=== PATIENT | male | born 1955 | race African-American/Black ===

== ENCOUNTER 2020-03-28 09:22 | Day surgery (SDC) | payer OTHER ==
[~2020-03-28 09:22] MED LIST: SODIUM CHLORIDE 0.9% 1000 ML 1,000 ML IV SCH
[2020-03-28] MEDS ORDERED: LIDOCAINE MPF (2%) 20 MG/1 ML VIAL 5 ML ONE (10:00)
--- NOTE | 2020-03-28 10:55 | Anesthesia Consultation ---
Anesthesia Consult and Med Hx Date of service: 03/28/20 - Airway Anesthetic Teeth Evaluation: Good ROM Head & Neck: Adequate Mental/Hyoid Distance: Adequate Mallampati Class: Class III Intubation Access Assessment: Possibly Difficult - Pulmonary Exam CTA: Yes - Cardiac Exam Cardiac Exam: RRR - Pre-Operative Health Status ASA Pre-Surgery Classification: ASA2 Proposed Anesthetic Plan: MAC - Pulmonary Hx Smoking: Yes Hx Respiratory Symptoms: No - Cardiovascular System Hx Hypertension: Yes Hx Heart Attack/AMI: No Hx Percutaneous Transluminal Coronary Angioplasty (PTCA): No Hx Cardia Arrhythmia: No - Central Nervous System CVA: No - Endocrine Hx Renal Disease: No Hx Liver Disease: No Hx Non-Insulin Dependent Diabetes: Yes Hx Thyroid Disease: No - Other Systems Hx Obesity: No
--- NOTE | 2020-03-28 10:55 | Anesthesia Day of Surgery ---
Anesthesia Day of Surgery - Day of Surgery Patient Examined: Yes Patient H&P Reviewed: Yes Patient is NPO: Yes
[2020-03-28] MEDS ORDERED: propofoL 200 MG/20 ML VIAL IV ONE ×2 (11:41→11:42)
[2020-03-28 13:12] VITALS: BP 132/58
--- NOTE | 2020-03-28 13:15 | Operative Report ---
PROCEDURE: Colonoscopy with cold biopsy. INDICATIONS: This is a 64-year-old [place] gentleman, originally from [place], who is having a colonoscopy done as part of colon polyp screening. This is his first colonoscopy. DESCRIPTION OF PROCEDURE: The procedure was done after getting informed consent with MAC anesthesia. Initial rectal exam was unremarkable. Instrument was passed through the rectum onto the cecum, which was identified by the ileocecal valve and the appendiceal orifice. Visualization was fair to good. The cecum showed normal mucosa. In the ascending colon, there was an 8 mm polyp that was sessile and small and was removed by cold biopsy. In the mid to distal transverse colon, there was an additional small colon polyp, also about 8 mm, also removed by cold biopsy. The rest of the transverse colon showed normal mucosa and the descending colon showed normal mucosa as did most of the sigmoid. In the rectosigmoid area, there were again 3 or 4 small polyps that were again removed by cold biopsy. No diverticular disease was noted throughout the entirety of the colon and the rectum showed some minor internal hemorrhoids on the retroverted view. There was minimal bleeding associated with the polyp and no complications associated with the colonoscopy. ASSESSMENT: Colon polyp screening, multiple small colon polyps in the rectosigmoid, transverse and ascending colon. Minor internal hemorrhoids. No diverticular disease noted. PLAN: To have the patient avoid aspirin and aspirin-related products for the next few days. Resume home medication and follow up in the office in 1-2 weeks' time. Procedure was done in the GI lab with the assistance of the GI lab team, which included SAVANAH, lisa Silver Terell and with the assistance of anesthesia. JOB# [id number] ALIS/MALIHA
--- NOTE | 2020-03-28 13:32 | Post Anesthesia Evaluation ---
- Post Anesthesia Evaluation Patient Participated: Yes Airway Patent: Yes Stable Respiratory Function: Yes Nausea/Vomiting: No Temp > 96.8F: Yes Pain Manageable: Yes Adequeate Hydration: Yes Anesthesia Complications: No
== END 2020-03-28 13:19 | disposition home or self-care (01) ==
LOC: GIO 09:22
DX: Z12.11 Encounter for screening for malignant neoplasm of colon (principal); K64.8 Other hemorrhoids; D12.7 Benign neoplasm of rectosigmoid junction; K63.89 Other specified diseases of intestine; I10 Essential (primary) hypertension; E78.5 Hyperlipidemia, unspecified; E11.9 Type 2 diabetes mellitus without complications; F17.210 Nicotine dependence, cigarettes, uncomplicated; E78.00 Pure hypercholesterolemia, unspecified; Z79.899 Other long term (current) drug therapy; Z98.890 Other specified postprocedural states
CPT/HCPCS: 45380; 82962; 88305; J2704; J7030